=== PATIENT | male | born 1975 | race Caucasian/White ===

== ENCOUNTER 2023-06-06 00:21 | Day surgery (SDC) | payer BC, SELFPAY ==
[2023-05-10 13:26] VITALS: BMI 27.9
--- NOTE | 2023-06-04 08:38 | SUR.PREOP ---
Patient called regarding upcoming procedure. Reviewed preop instructions, appointment times, and procedure prep.
[2023-06-06 06:14] VITALS: BP 142/95; PULSE 110; RESP 17; TEMP 36.5; O2SAT 98; BMI 26.7
[2023-06-06] MEDS: LACTATED RINGERS 1,000 ML 150 ML IV CONT (06:23)
--- NOTE | 2023-06-06 07:28 | WPDANESEPPF ---
Anes - Initial Pre Proc Eval Procedure: Operation Date: 06/06/23 07:30 Proposed Procedures p Screening Colonoscopy - Kulwinder Rosado MD Date/Time: 06/06/23 07:28 Surgeon: Kulwinder Rosado MD Pre Op Diagnosis: neoplasm screening Patient Data Age: 48 Gender: M Height: 1.8 m Weight: 87.1 kg Last Vital Signs Temp 97.7 F 06/06/23 06:14 Pulse 110 H 06/06/23 06:14 Resp 17 06/06/23 06:14 BP 142/95 H 06/06/23 06:14 Pulse Ox 98 06/06/23 06:14 O2 Del Method Room Air 06/06/23 06:14 Allergies Allergy/AdvReac Type Severity Reaction Status Date / Time CAFFINE AdvReac Unknown CHEST PAIN Uncoded 06/06/23 06:13 Home Medications Medication Instructions Recorded Confirmed Type fluticasone propionate 50 1 - 2 spray intranasal BID #16 mL 08/22/21 06/06/23 Rx mcg/actuation nasal spray,suspension (Flonase Allergy Relief) azelastine 137 mcg (0.1 %) nasal 1 spray intranasal Q12H #30 mL 06/01/22 06/06/23 Rx spray aerosol hydrochlorothiazide 12.5 mg tablet 12.5 mg PO DAILY #90 tabs 12/05/22 06/06/23 Rx lisinopril 10 mg tablet 10 mg PO DAILY #90 tabs 02/05/23 06/06/23 Rx lorazepam 0.5 mg tablet 0.5 mg PO TID PRN anxiety #30 tabs 02/19/23 06/06/23 Rx buspirone 7.5 mg tablet See Rx Instructions .Route 03/14/23 06/06/23 Rx .COMPLEX #90 tabs bupropion HCl 150 mg 24 hr tablet, 150 mg PO QAM #90 tabs 04/03/23 06/06/23 Rx extended release Patient hx anesthesia problems: none Family hx anesthesia problems: none Results Review: All pre-operative results and documents have been reviewed as part of the pre-operative evaluation. [facility] Surgical History Surgical History Status post laparoscopic cholecystectomy Social History Social History Social History: Smoking packs per day: 0.5 Smoking cigarettes per day: 10.0 Years smoked: 20 Smoking pack-years: 10.00 Smoking status: Former smoker Tobacco type: cigarettes Second hand tobacco smoke exposure: Yes Smoking end date: 05/28/16 Alcohol intake: never Alcohol use details: Rarely Substance use: never Substance use type: does not use Living arrangements: with family Occupation/Education: occupation Gender identity (if verbalized by the patient): Male Sexual Orientation (if Verbalized by the Patient): Lesbian, Santoro, or Homosexual Spiritual care concerns: No Anes - Eval Final PreProcedure Day of Procedure 06/06/23 07:28 Patient weight: normal Heart: regular rate and rhythm Lungs: clear to auscultation Airway: Mallampati scale class II Neurological: alert and oriented Last oral intake: >/= 8 hours ASA classification: II Emergent: no Anesthetic plan: proceed Anesthesia type and monitoring: general GIVS and standard monitoring Results Review: All pre-operative results and documents have been reviewed as part of the pre-operative evaluation. Informed Consent: The patient's anesthetic plan and its attendant risks and benefits were discussed with the patient/family/POA. Questions were solicited and answers provided to the satisfaction of the patient/family/POA.
--- NOTE | 2023-06-06 07:30 | PM.HPGS ---
History of Present Illness History of Present Illness Consent: Risks, benefits, and alternatives have been discussed and questions answered. Patient agrees to proceed with procedure. Chief complaint: neoplasm screening Narrative: Carlos Koo is a 48 year old male here for first screening colonoscopy Review of Systems Constitutional: Constitutional: Denies headache(s) and Denies weakness Eyes: Eyes: Denies blurry vision ENT: Reports Normal hearing present, Denies headache(s) and Denies neck pain Cardiovascular: Cardiovascular: Denies chest pain and Denies dyspnea Respiratory: Respiratory: Denies dyspnea Gastrointestinal: Gastrointestinal: Reports no additional gastrointestinal complaints Genitourinary: Genitourinary: Denies dysuria Musculoskeletal: Musculoskeletal: Denies neck pain Integumentary/Breasts: Skin/Breast: Denies dry skin Neurologic: Reports Normal hearing present, Denies headache(s) and Denies weakness Psychiatric: Psychiatric: Denies anxiety Endocrine: Endocrine: Denies change in body appearance Hematologic/Lymphatic: Hematologic/Lymphatic: Denies easy bleeding Allergic/Immunologic: Allergic/Immunologic: Denies urticaria [facility], [facility] Past Medical History Medical History (Updated 06/06/23 @ 07:30 by Kulwinder Rosado MD) Colon cancer screening Surgical History Surgical History Status post laparoscopic cholecystectomy Social History Social History Social History: Smoking packs per day: 0.5 Smoking cigarettes per day: 10.0 Years smoked: 20 Smoking pack-years: 10.00 Smoking status: Former smoker Tobacco type: cigarettes Second hand tobacco smoke exposure: Yes Smoking end date: 05/28/16 Alcohol intake: never Alcohol use details: Rarely Substance use: never Substance use type: does not use Living arrangements: with family Occupation/Education: occupation Gender identity (if verbalized by the patient): Male Sexual Orientation (if Verbalized by the Patient): Lesbian, Santoro, or Homosexual Spiritual care concerns: No Meds Home Medications and Allergies Home Medications Medication Instructions Recorded Confirmed Type fluticasone propionate 50 1 - 2 spray intranasal BID #16 mL 08/22/21 06/06/23 Rx mcg/actuation nasal spray,suspension (Flonase Allergy Relief) azelastine 137 mcg (0.1 %) nasal 1 spray intranasal Q12H #30 mL 06/01/22 06/06/23 Rx spray aerosol hydrochlorothiazide 12.5 mg tablet 12.5 mg PO DAILY #90 tabs 12/05/22 06/06/23 Rx lisinopril 10 mg tablet 10 mg PO DAILY #90 tabs 02/05/23 06/06/23 Rx lorazepam 0.5 mg tablet 0.5 mg PO TID PRN anxiety #30 tabs 02/19/23 06/06/23 Rx buspirone 7.5 mg tablet See Rx Instructions .Route 03/14/23 06/06/23 Rx .COMPLEX #90 tabs bupropion HCl 150 mg 24 hr tablet, 150 mg PO QAM #90 tabs 04/03/23 06/06/23 Rx extended release Allergies Allergy/AdvReac Type Severity Reaction Status Date / Time CAFFINE AdvReac Unknown CHEST PAIN Uncoded 06/06/23 06:13 Vital Signs Vital Signs - 24 hr 06/06/23 06:14 Temperature 97.7 F Pulse Rate 110 H Respiratory Rate 17 Blood Pressure 142/95 H Pulse Oximetry 98 Oxygen Delivery Room Air Exam Const: General: comfortable and no acute distress HENMT: Face/Nose/Sinus: Normal nares present Eyes: General: appearance normal, both eyes and all related structures Neck: Neck: no JVD Resp: Auscultation: clear to auscultation bilaterally Cardio: Rate: regular rate Rhythm: regular rhythm GI: Inspection: non-distended GI Palp: Yes Soft to palpation Skin: General skin exam: normal color Neuro: General: gait normal Speech: normal speech Extrem: General: normal to inspection Psych: Mental Status: mental status grossly normal Assessment and Plan Assessment and plan (1) Colon cancer screening: C
[2023-06-06 07:55] VITALS: BP 129/72; PULSE 94; RESP 20; O2SAT 96
[2023-06-06 08:05] VITALS: BP 126/90; PULSE 93; RESP 18; O2SAT 99
[2023-06-06 08:15] VITALS: BP 116/87; PULSE 78; RESP 22; O2SAT 99
== END 2023-06-06 08:20 | disposition home or self-care (01) ==
PROVIDERS: PCP Family Medicine; Visit Provider Internal Medicine Gastroenterology
PROC: 0DJD8ZZ Inspection of Lower Intestinal Tract, Via Natural or Artificial Opening Endoscopic (ICD-10-PCS; CPT 45378; principal; 2023-06-06 07:30)
DX: Z12.11 Encounter for screening for malignant neoplasm of colon (principal); D12.3 Benign neoplasm of transverse colon; D12.5 Benign neoplasm of sigmoid colon; D12.8 Benign neoplasm of rectum; K64.8 Other hemorrhoids; Z87.891 Personal history of nicotine dependence
CPT/HCPCS: 45385; 88305; J2704; J7120

== ENCOUNTER 2024-09-03 14:48 | Outpatient (CLI) | payer OTHER, SELFPAY ==
--- NOTE | ~2024-09-03 | US_ITS ---
US soft tissue head and neck 09/03/2024 15:00 Indication: Left submandibular lump for a few days. Procedure: High-resolution Limited ultrasound of the left submandibular gland and surrounding soft ti ssues Comparison: No prior studies for comparison. Findings: Normal heterogeneous appearance to the submandibular gland with mildly prominent ducts. No stones identified in the gland. Surrounding soft tissues are unremarkable. Impression: 1: Unremarkable ultrasound of the left submandibular gland. Consider correlation with contrast-enhanc ed CT neck. Reviewed, dictated and finalized at location A. Impression: 1: Unremarkable ultrasound of the left submandibular gland. Consider correlatio n with contrast-enhanced CT neck.
== END 2024-09-03 14:49 | disposition home or self-care (01) ==
LOC: GOSHIMG 14:48
PROVIDERS: PCP Family Medicine; Visit Provider Physician Assistant
DX: R22.1 Localized swelling, mass and lump, neck (principal); R22.0 Localized swelling, mass and lump, head; R52 Pain, unspecified
CPT/HCPCS: 76536

== ENCOUNTER 2025-02-12 09:19 | Outpatient (CLI) | payer OTHER, SELFPAY ==
--- NOTE | ~2025-02-12 | XR_ITS ---
EXAMINATION: XR ankle LT 2V, 02/12/2025 9:30 CDT HISTORY: Unspecified fall, initial encounter, fell off step last nig COMPARISON: No comparisons available. Findings: No acute fracture or malalignment. No significant degenerative changes. Soft tissues unremarkable. Impression: No acute fracture or malalignment. Reviewed, dictated and finalized at location A. Impression: No acute fracture or malalignment.
--- NOTE | ~2025-02-12 | XR_ITS ---
EXAMINATION: XR foot LT 2V, 02/12/2025 9:30 CDT HISTORY: Unspecified fall, initial encounter, fell off step last nigh COMPARISON: No comparisons available. Findings: No acute fracture or malalignment. No significant degenerative changes. Soft tissues unremarkable. Impression: No acute fracture or malalignment. Reviewed, dictated and finalized at location A. Impression: No acute fracture or malalignment.
== END 2025-02-12 09:20 | disposition home or self-care (01) ==
LOC: GOSHIMG 09:19
DX: M25.572 Pain in left ankle and joints of left foot (principal); M79.672 Pain in left foot
CPT/HCPCS: 73600; 73620